=== PATIENT | male | born 1985 | race Caucasian/White ===

== ENCOUNTER 2021-12-28 05:39 | Day surgery (SDC) | payer OTHER ==
[~2021-12-28] VITALS: Ht 177.8 cm; Wt 79.4 kg
[~2021-12-28 05:39] MED LIST: CEFADROXIL500 MG PO
[2021-12-28] MEDS ORDERED: PERCOCET 5-3251 EACH PO (08:01)
[2021-12-28] MEDS ORDERED: NEURONTIN300 MG PO (08:01)
[2021-12-28] MEDS ORDERED: COLACE100 MG PO (08:01)
== END 2021-12-28 15:10 | disposition home or self-care (01) ==
LOC: CIR.AMB 05:39
PROVIDERS: ATTEND Surgery
DX: K60.0 Acute anal fissure (principal); K62.89 Other specified diseases of anus and rectum; Z20.822 Contact with and (suspected) exposure to COVID-19; Z71.6 Tobacco abuse counseling; F17.210 Nicotine dependence, cigarettes, uncomplicated

== ENCOUNTER → 2024-04-04 | Emergency (ER) | payer OTHER ==
[~2024-04-04] VITALS: Ht 177.8 cm; Wt 81.6 kg
[~2024-04-04] MED LIST changes: +COLACE100 MG PO; +NEURONTIN300 MG PO; +PERCOCET 5-3251 EACH PO
== END | disposition left against medical advice (07) ==
LOC: ER 13:27
DX: S62.396A Other fracture of fifth metacarpal bone, right hand, initial encounter for closed fracture (principal); W18.39XA Other fall on same level, initial encounter; Y93.89 Activity, other specified; Y92.018 Other place in single-family (private) house as the place of occurrence of the external cause; Y99.9 Unspecified external cause status